=== PATIENT | male | born 1955 | race Hispanic/Latino ===

== ENCOUNTER 2021-05-15 08:29 | Observation (INO) | payer MEDICARE ==
[2021-05-10 12:52] LABS: BASOPHILS % 0.6 % (0.0-1.0); EOSINOPHILS # (AUTO) 0.1 (0.0-0.4); HEMATOCRIT 41.6 % (38.2-49.6); HEMOGLOBIN 13.3 g/dL (14.0-18.0); LYMPHOCYTES # (AUTO) 2.4 (1.0-3.2); LYMPHOCYTES % 34.4 % (18.0-39.1); MEAN CORPUSCULAR HEMOGLOBIN 24.3 pg (28-32); MEAN CORPUSCULAR VOLUME 75.9 fL (81-99); MONOCYTES # (AUTO) 0.7 (0.2-0.8); MONOCYTES % 9.9 % (4.4-11.3); NEUTROPHILS # (AUTO) 3.8 (2.1-6.9); PLATELET COUNT 238 x10e3/uL (140-360); RED BLOOD COUNT 5.48 x10e6/uL (4.3-5.7); RED CELL DISTRIBUTION WIDTH 15.2 % (11.7-14.4)
[~2021-05-15] VITALS: Ht 162.6 cm; Wt 108.9 kg
[~2021-05-15 08:29] MED LIST: BENICAR20 MG PO; CELECOXIB 200 MG CAP ONE; DEXAMETHASONE SOD PHOS 10 MG/1 ML VIAL ONE; GABAPENTIN 300 MG CAP ONE; ROPIVACAINE 246.25 MG, EPINEPHRINE HCL 1:1000 1ML 0.5 MG, CLONIDINE HCL 0.08 MG, KETORO... INJ ONE; SODIUM CHLORIDE 0.9% 50ML 100 ML ONE
[2021-05-15] MEDS ORDERED: TRANEXAMIC ACID 1,000 MG/10 ML ML ONE (08:30)
[2021-05-15] MEDS ORDERED: Vancomycin IV 1,000 MG ONE (08:30)
[2021-05-15] MEDS ORDERED: SODIUM CHLORIDE 0.9% 500ML 500 ML ONE (08:30)
[2021-05-15] MEDS ORDERED: PROPOFOL IV EMULSION 10 MG/ML 20 ML VIAL ONE (12:45)
[2021-05-15] MEDS ORDERED: ONDANSETRON HCL INJ 2MG/ML 2ML 2 MG/ML VIAL ONE (12:45)
[2021-05-15] MEDS ORDERED: POVIDONE IODINE 0.05% 0.05 % ML PO ONE (12:45)
[2021-05-15] MEDS ORDERED: LIDOCAINE HCL 2% LOCAL INJ 5 ML SDV VIAL INJ ONE (12:45)
[2021-05-15] MEDS ORDERED: LIDOCAINE HCL 2% JELLY 5 ML TUBE ONE (12:45)
[2021-05-15] MEDS ORDERED: SEVOFLURANE INHAL SOLN 250 ML PEN BTL ONE (12:45)
[2021-05-15] MEDS ORDERED: FENTANYL CITRATE/PF 100MCG/2 ML INJ ONE (13:32)
[2021-05-15] MEDS ORDERED: LIDOCAINE 2%/ EPINEPHRINE 20ML MDV ONE (14:01)
[2021-05-15] MEDS ORDERED: ROPIVACAINE 0.5% 5 MG/ML 30 ML SDV ONE (14:01)
[2021-05-15 15:47] VITALS: BP 130/54
[2021-05-15 15:48] VITALS: BP 130/54
[2021-05-15 16:20] VITALS: BP 152/69
[2021-05-15] MEDS ORDERED: KETOROLAC TROMETHAMINE 30 MG/ML VIAL IV PRN (16:30)
[2021-05-15] MEDS ORDERED: ONDANSETRON HCL INJ 2MG/ML 2ML 2 MG/ML VIAL IV PRN (16:30)
[2021-05-15] MEDS ORDERED: HYDROCODONE/APAP 5MG-325MG TAB PO PRN (16:30)
[2021-05-15] MEDS ORDERED: DIPHENHYDRAMINE HCL INJ 50 MG/ML VIAL IV PRN (16:30)
[2021-05-15] MEDS ORDERED: ACETAMINOPHEN 1000 MG/100 ML IV PRN (17:00)
[2021-05-15] MEDS: ASPIRIN 81 MG ENTERIC COATED PO SCH (17:28)
[2021-05-15] MEDS: CELECOXIB 200 MG CAP PO SCH (17:28)
[2021-05-15] MEDS: DOCUSATE SODIUM 100 MG CAP PO SCH (17:28)
[2021-05-15] MEDS: Cefazolin 1 GM in SODIUM CHLORIDE 0.9% 50ML 50 ML IV SCH (17:28)
[2021-05-15] MEDS: SODIUM CHLORIDE 0.9% 1000ML 1,000 ML IV SCH (17:28)
[2021-05-15 20:00] VITALS: BP 122/73
[2021-05-15 21:00] VITALS: BP 122/73
[2021-05-15] MEDS ORDERED: ZOLPIDEM TARTRATE 5 MG TAB PO PRN (21:00)
[2021-05-15] MEDS: HYDROCODONE/APAP 7.5MG-325MG 1 EA TAB PO PRN (21:47)
[2021-05-15 23:20] VITALS: BP 113/64
[2021-05-16] MEDS: Cefazolin 1 GM in SODIUM CHLORIDE 0.9% 50ML 50 ML IV SCH (02:00)
[2021-05-16] MEDS: SODIUM CHLORIDE 0.9% 1000ML 1,000 ML IV SCH (03:00)
[2021-05-16 04:00] VITALS: BP 92/64
[2021-05-16] MEDS: HYDROCODONE/APAP 7.5MG-325MG 1 EA TAB PO PRN (05:35)
[2021-05-16 05:39] LABS: HEMATOCRIT 34.8 % (38.2-49.6); HEMOGLOBIN 11.2 g/dL (14.0-18.0)
[2021-05-16 08:01] VITALS: BP 101/69
[2021-05-16 08:10] VITALS: BP 101/69
[2021-05-16] MEDS: ASPIRIN 81 MG ENTERIC COATED PO SCH (08:45)
[2021-05-16] MEDS: CELECOXIB 200 MG CAP PO SCH (08:46)
[2021-05-16] MEDS: DOCUSATE SODIUM 100 MG CAP PO SCH (08:46)
== END 2021-05-16 10:25 | disposition home or self-care (01) ==
LOC: OR 08:29 → PACU V 12:50 → MED/SURG 14:36
PROVIDERS: ADMIT Specialist; ATTEND Specialist
DX: M17.11 Unilateral primary osteoarthritis, right knee (principal); I10 Essential (primary) hypertension; K21.9 Gastro-esophageal reflux disease without esophagitis; D64.9 Anemia, unspecified; Z01.810 Encounter for preprocedural cardiovascular examination; Z01.812 Encounter for preprocedural laboratory examination; Z01.818 Encounter for other preprocedural examination
CPT/HCPCS: 27447; 36415 ×2; 71046; 73560; 85014; 85018; 85025; 86850; 86900; 93005; 97116 ×2; 97161; 97530; C1713 ×3; C1776; G0378 ×2; J0171; J0690 ×2; J1100; J1885; J2001 ×3; J2405; J2704; J2795; J3010; J3370; J7030; J7040; 86920

== ENCOUNTER 2021-06-21 13:00 | Outpatient (RCR) | payer MEDICARE ==
[~2021-06-21 13:00] MED LIST changes: -CELECOXIB 200 MG CAP ONE; -DEXAMETHASONE SOD PHOS 10 MG/1 ML VIAL ONE; -GABAPENTIN 300 MG CAP ONE; -ROPIVACAINE 246.25 MG, EPINEPHRINE HCL 1:1000 1ML 0.5 MG, CLONIDINE HCL 0.08 MG, KETORO... INJ ONE; -SODIUM CHLORIDE 0.9% 50ML 100 ML ONE
== END 2021-06-23 ==
LOC: PT 13:00
PROVIDERS: ATTEND Physician Assistant
DX: Z47.1 Aftercare following joint replacement surgery (principal); Z96.651 Presence of right artificial knee joint

== ENCOUNTER 2021-07-19 12:49 | Outpatient (RCR) | payer MEDICARE | END 2021-07-24 | LOC: PT 12:49 | PROVIDERS: ATTEND Physician Assistant | DX: Z47.1 Aftercare following joint replacement surgery (principal); Z96.651 Presence of right artificial knee joint | CPT/HCPCS: 97139 ==